=== PATIENT | female | born 1950 | race American Indian/Alaskan Native ===

== ENCOUNTER 2019-09-02 08:08 | Outpatient (CLI) | payer MEDICARE ==
--- NOTE | 2019-09-02 10:32 | Mammography Report ---
LEFT DIGITAL DIAGNOSTIC MAMMOGRAM CLINICAL: For clip placement after vacuum-assisted ultrasound-guided needle biopsy. COMPARISON: [facility] 08/10/2019 mammogram FINDINGS: Some of the previously identified subareolar calcifications have been removed and there is a subareolar upper inner biopsy clip. The clip is at 10-11 o'clock and the bulk of the calcifications were at 12:00. IMPRESSION: Slightly discordant clip deployment. Signer Name: Lauro Pena MD Signed: 09/02/2019 10:28 AM Workstation Name: [id number]
--- NOTE | 2019-09-02 13:46 | Ultrasound Report ---
ULTRASOUND-GUIDED VACUUM-ASSISTED NEEDLE CORE BIOPSY LEFT BREAST WITH CLIP PLACEMENT CLINICAL: Left periaortic subareolar duct ectasia with calcifications in the wall of the duct. Compar wagner images are available from [facility]. FINDINGS: The procedure was explained to the patient and informed consent was obtained. Ultrasound demonstrated the previously identified moderately dilated periareolar duct with calcificat ions.. I marked the breast with a felt tip marker and a timeout was called. The skin was prepped with Chloro -Prep and anesthetized with 1% lidocaine. Vacuum-assisted needle core biopsy was performed through tiny dermatotomy using ultrasound guidance, 2% lidocaine with epinephrine for deep anesthesia and a 13-gauge Mammotome Elite biopsy device. At [facility] 7 cores were obtained and placed in formalin. A clip was deployed at the margin of the lesion. The patient tolerated the procedure well and there were no apparent convocations. Hemostasis was achi eved with minimal effort and a sterile dressing was applied. A post procedure mammogram demonstrated a slightly discordant clip deployment with the clip more medi al than expected. She left the department in good condition and was given instructions for wound care and follow-up. IMPRESSION: Uncomplicated ultrasound guided needle core biopsy with clip placement left breast. Signer Name: Lauro Pena MD Signed: 09/02/2019 1:42 PM Workstation Name: [id number]
== END 2019-09-02 08:09 | disposition home or self-care (01) ==
LOC: SPVWC 08:08
PROVIDERS: ATTEND Surgery
DX: N60.42 Mammary duct ectasia of left breast (principal); R92.8 Other abnormal and inconclusive findings on diagnostic imaging of breast; R92.2 Inconclusive mammogram; R92.1 Mammographic calcification found on diagnostic imaging of breast
CPT/HCPCS: 88305

== ENCOUNTER 2019-09-29 06:17 | Day surgery (SDC) | payer MEDICARE ==
[~2019-09-29 06:17] MED LIST: GABAPENTIN 300 MG CAP PO NR; LACTATED RINGERS 1,000 ML IV SCH; MIDAZOLAM 2 MG/2 ML INJ IV NR; WATER FOR IRRIG STERILE 1,500 ML BOTTLE IR ONE
--- NOTE | 2019-09-29 07:37 | Anesthesia Consultation ---
Anesthesia Consult and Med Hx Date of service: 09/29/19 - Airway Anesthetic Teeth Evaluation: Good, Caps ROM Head & Neck: Adequate Mental/Hyoid Distance: Adequate Mallampati Class: Class II Intubation Access Assessment: Probably Good - Pre-Operative Health Status ASA Pre-Surgery Classification: ASA2 Proposed Anesthetic Plan: General - Cardiovascular System Hx Hypertension: Yes (OVER 20YRS) - Central Nervous System Hx Psychiatric Problems: No - Other Systems Hx Substance Use: No Hx Cancer: No (right breast lesion)
--- NOTE | 2019-09-29 07:37 | Anesthesia Day of Surgery ---
Anesthesia Day of Surgery - Day of Surgery Patient Examined: Yes Patient H&P Reviewed: Yes Patient is NPO: Yes
[2019-09-29] MEDS ORDERED: BUPIVACAINE/PF (0.25%) 2.5 MG/ML 30 ML VIAL INFILTRATI ONE ×2 (07:48→11:04)
[2019-09-29] MEDS ORDERED: LIDOCAINE (1%) 10 MG/1 ML VIAL 20 ML MDV ONE (07:48)
[2019-09-29] MEDS ORDERED: FAMOTIDINE 20 MG/2 ML INJ IV NR (08:00)
[2019-09-29] MEDS ORDERED: LIDOCAINE (1%) 10 MG/1 ML VIAL 20 ML MDV INFILTRATI NR (08:30)
[2019-09-29] MEDS ORDERED: ceFAZolin/STERILE WATER 2 GM/20 ML SYRINGE IV NR (09:00)
[2019-09-29] MEDS ORDERED: HYDROmorphone 1 MG/1 ML INJ ONE (09:23)
[2019-09-29] MEDS ORDERED: LIDOCAINE MPF (2%) 20 MG/1 ML VIAL 5 ML ONE (09:24)
[2019-09-29] MEDS ORDERED: PROPOFOL 200 MG/20 ML VIAL IV ONE (09:24)
--- NOTE | 2019-09-29 10:58 | Mammography Report ---
NEEDLE LOCALIZATION AND HOOKWIRE PLACEMENT LEFT BREAST INDICATION: left needle localization. Status post vacuum-assisted ultrasound biopsy with fragments of papilloma i dentified by pathology. Surgical excision recommended. COMPARISON: 09/02/2019 FINDINGS: A timeout was called and a sal was placed on the left breast. Using mammographic guidance, sterile t echnique and 1% lidocaine for local anesthesia, a 3 cm Farris 3 hookwire was placed from a CC from a kellee approach to localize a clip and calcifications. Satisfactory positioning was confirmed by orthog onal views. The hookwire was deployed and the needle was removed. A sterile dressing was applied at [facility] site. The patient tolerated the procedure well and there were no apparent complications. She was taken to [facility] surgical suite in good condition. IMPRESSION: 1. Uncomplicated hookwire placement left breast.. Signer Name: Lauro Pena MD Signed: 09/29/2019 10:54 AM Workstation Name: [id number]
[2019-09-29] MEDS ORDERED: WATER FOR IRRIG STERILE 1,500 ML BOTTLE IR ONE (11:02)
[2019-09-29] MEDS ORDERED: LIDOCAINE (1%) 10 MG/1 ML VIAL 20 ML MDV INFILTRATI ONE (11:04)
[2019-09-29] MEDS ORDERED: KETOROLAC 30 MG/1 ML INJ ONE (11:22)
[2019-09-29] MEDS ORDERED: ONDANSETRON 4 MG/2 ML INJ ONE (11:22)
--- NOTE | 2019-09-29 11:38 | Operative Report ---
Operative Report Operative Report: Operative Report: September 29, 2019 Preoperative diagnosis: Left breast papilloma and left bloody nipple discharge Postoperative diagnosis: Same Procedure: Left nipple terminal duct excisional biopsy and left breast needle localization excisional biopsy of breast papilloma Surgeon: Alyssa Juan MD Anesthesia: General Findings: Bloody nipple discharge with duct identified using lacrimal probe with dissection taken down to prior biopsied papilloma with excision Complications: None Drains: None EBL: Minimal Disposition: PACU Indications for operative procedure: This is a 68 year-old lady with recent abnormal left mammogram and left breast ultrasound of suspicious calcifications as seen on mammogram. Recent with findings of fragmented papilloma. Patient also with new onset left sponanteous bloody nipple discharge and most probable for recent biopsied papilloma. Recommendations were to proceed with terminal duct excisional biopsy as well as excisional biopsy of biopsied papilloma to rule out malignancy. Papilloma known benign high risk breast cancer lesion. Patient wished to proceed with the above procedure. Procedure detail: The patient was taken to radiology for placement of wire to localize excision of location of biopsy clip. The patient was taken to the operating room. She was laid supine. General anesthesia was administered. Wire was identified. The left breast was prepped and draped in the normal sterile operative fashion. Timeout was performed. Bloody nipple discharge was noted from the nipple, around the 11/12:00 position. Ultrasound was used to identify clip. Lacrimal probe was inserted into the duct of concern. A periareo lar incision was made with 15 blade knife at 12:00 position with dissection taken down to the subcutaneous tissues. First began dissection of the breast tissue from the superior flap of the nipple with dissection taken down 3-4 cm. The duct of concern was appropriately identified and dissected free with the aid of Bovie cautery, duct of concern was identified with the lacrimal probe present. Attention was then taken towards the wire with area of terminal duct noted to terminate at wire of clip placement. A superior breast flap was then raised using the Bovie cautery with removal of wire followed by raising of the inferior flap meeting the terminal duct followed by raising of the lateral and medial flaps and dissection taken down posteriorly. The breast tissue posteriorly was then appropriately removed with the aid of Bovie cautery. The duct of concern was noted to be connecting to the area of excision of the papilloma. Hemostasis was noted. The specimen was appropriately marked and then sent to radiology with both clip and wire present and then sent to pathology; clip was adjacent to tissue removed and sent separately. Ultrasound used to evaluate remaining breast tissue with no suspicious findings. The breast cavity was anesthetized with 1% lidocaine mixed with quarter percent Marcaine. The deep breast tissues were approximated and closed using interrupted 3-0 Vicryl. The subcutaneous tissues were approximated and closed using interrupted 3-0 Vicryl followed by closing of the skin with a running 4-0 Monocryl followed by skin affix. She tolerated surgery very well and was awakened from anesthesia and then transferred to PACU in good condition.
--- NOTE | 2019-09-29 11:41 | Short Stay Summary ---
Short Stay Documentation Date of service: 09/29/19 - History H&P: obtained from office - Allergies and Medications Current Medications: Allergies amoxicillin Allergy (Verified 09/23/19 12:59) Rash Sulfa (Sulfonamide Antibiotics) Allergy (Verified 09/23/19 12:59) Initially a Rash, but then WBC count drops Home Medications Medication Instructions Recorded Confirmed Last Taken Type Olmesartan Medoxomil [Benicar] 20 mg PO DAILY 09/23/19 09/29/19 09/28/19 21:00 History amLODIPine [Norvasc] 5 mg PO DAILY 09/23/19 09/29/19 09/28/19 21:00 History HYDROcodone/APAP 5-325 [[place] 1 each PO Q6HR PRN #12 tablet 09/29/19 Unknown Rx 5/325] Active Medications Famotidine (Pepcid) 20 mg IV PREOP NR Stop: 09/29/19 16:00 Last Admin: 09/29/19 09:15 Dose: 20 mg Documented by: Gabapentin (Gabapentin) 300 mg PO PREOP NR Stop: 09/29/19 18:10 Last Admin: 09/29/19 09:00 Dose: 300 mg Documented by: Lactated Ringer's (Lactated Ringers) 1,000 mls @ 100 mls/hr IV DIRECT AMANDA Last Admin: 09/29/19 09:15 Dose: 100 mls/hr Documented by: Lidocaine (Xylocaine 1% 20 Ml) 20 ml INFILTRATI ONCE NR Stop: 09/29/19 13:00 Midazolam HCl (Versed) 2 mg IV PREOP NR Stop: 09/29/19 23:00 Last Admin: 09/29/19 09:40 Dose: 2 mg Documented by: - Brief post op/procedure progress note Date of procedure: 09/29/19 Pre-op diagnosis: Left bloody nipple discharge and left breast papilloma Post-op diagnosis: same Procedure: Left nipple terminal duct excisional biospy and left papilloma excisional biopsy Anesthesia: GETA Findings: Left breast clip and wire present Surgeon: JOCELYN BLACKMON Estimated blood loss: minimal Pathology: list (left breast papilloma and terminal duct) Specimen disposition: to lab Condition: stable - Disposition Condition at discharge: Good Disposition: DC- TO HOME OR SELFCARE Short Stay Discharge Plan Activity: other (no heavy lifting) Diet: regular Wound: keep clean and dry (may shower in 24 hours; no baths; wear breast binder) Follow up with: SANDRINE GASTON MD [Primary Care Provider] - 7 Days JOCELYN BLACKMON MD [Staff Physician] - 7 Days Prescriptions: HYDROcodone/APAP 5-325 [[place] 5/325] 1 each PO Q6HR PRN #12 tablet PRN Reason: Pain
[2019-09-29 12:17] VITALS: BP 125/52
--- NOTE | 2019-09-29 12:54 | Mammography Report ---
SPECIMEN RADIOGRAPH LEFT BREAST INDICATION: specimen. Post excisional biopsy. COMPARISON: 09/02/2019 FINDINGS: An initial image demonstrates the targeted calcifications and a hookwire but no biopsy clip. A second specimen radiograph demonstrates the HIDA sal biopsy clip. It apparently was dislodged from the spe cimen at the time of the excision. IMPRESSION: 1. Excision of the targeted calcifications and localizer clip. Signer Name: Lauro Pena MD Signed: 09/29/2019 12:50 PM Workstation Name: [id number]
--- NOTE | 2019-09-29 16:47 | Post Anesthesia Evaluation ---
- Post Anesthesia Evaluation Patient Participated: Yes Airway Patent: Yes Stable Respiratory Function: Yes Nausea/Vomiting: No Temp > 96.8F: Yes Pain Manageable: Yes Adequeate Hydration: Yes Anesthesia Complications: No
== END 2019-09-29 12:55 | disposition home or self-care (01) ==
LOC: OR 06:17
PROVIDERS: ATTEND Surgery
DX: D24.2 Benign neoplasm of left breast (principal); I10 Essential (primary) hypertension; Z88.1 Allergy status to other antibiotic agents; Z88.2 Allergy status to sulfonamides; Z98.890 Other specified postprocedural states
CPT/HCPCS: 19125; 19281; 76098; 88307; J1170; J1885; J2250; J2405; J2704; J7120

== ENCOUNTER 2020-07-27 08:12 | Outpatient (CLI) | payer MEDICARE ==
--- NOTE | 2020-07-27 08:55 | Mammography Report ---
DIGITAL SCREENING MAMMOGRAM WITH CAD, 07/27/2020 INDICATION: Routine screening mammography. TECHNIQUE: Digital bilateral 2D mammography was obtained in the craniocaudal and mediolateral obliq ue projections. This examination was interpreted with the benefit of Computer-Aided Detection analysi s. COMPARISON: 07/22/2019, 06/01/2018 FINDINGS: Breast Density: There are scattered areas of fibroglandular density. There is no evidence of dominant mass, suspicious calcifications or architectural distortion in eithe r breast. Postsurgical changes are noted in the left breast. IMPRESSION: Follow up recommendation: Routine yearly BI-RADS Category 2: Benign. A "normal" or negative report should not discourage follow up or biopsy of a clinically significant f inding. A written summary of these findings will be mailed to the patient. The patient will be entered into a mammography reporting system which will generate a reminder letter for the patient's next appointmen t at the appropriate interval. The [employer] recommends yearly mammograms starting at age 40 and continuing as l mayda as a woman is in good health. Breast MRI is recommended for women with an approximate 20-25% or greater lifetime risk of breast cancer, including women with a strong family history of breast or ova erin cancer or who have been treated for Hodgkin's disease. Signer Name: Krista Mckay MD Signed: 07/27/2020 8:51 AM Workstation Name: [id number]
== END 2020-07-27 08:13 | disposition home or self-care (01) ==
LOC: SPVWC 08:12
PROVIDERS: ATTEND Surgery
DX: Z12.31 Encounter for screening mammogram for malignant neoplasm of breast (principal)
CPT/HCPCS: 77067

== ENCOUNTER 2021-07-30 08:03 | Outpatient (CLI) | payer MEDICARE ==
--- NOTE | 2021-07-30 09:49 | Mammography Report ---
DIGITAL SCREENING MAMMOGRAM WITH CAD, 07/30/2021 CLINICAL INFORMATION / INDICATION: Routine screening mammography. Z12.31 TECHNIQUE: Digital bilateral 2D mammography was obtained in the craniocaudal and mediolateral obliqu e projections. This examination was interpreted with the benefit of Computer-Aided Detection analysis . COMPARISON: 07/27/2020, 07/22/2019, 06/01/2018 FINDINGS: Breast Density: There are scattered areas of fibroglandular density. No dominant mass, suspicious calcifications, or architectural distortion in either breast. Postoperative changes are noted to the left retroareolar breast. IMPRESSION: No mammographic evidence of malignancy. Follow up recommendation: Routine yearly BI-RADS Category 2: Benign. A "normal" or negative report should not discourage follow up or biopsy of a clinically significant f inding. A written summary of these findings will be mailed to the patient. The patient will be entered into a mammography reporting system which will generate a reminder letter for the patient's next appointmen t at the appropriate interval. The [employer] recommends yearly mammograms starting at age 40 and continuing as l mayda as a woman is in good health. Breast MRI is recommended for women with an approximate 20-25% or greater lifetime risk of breast cancer, including women with a strong family history of breast or ova erin cancer or who have been treated for Hodgkin's disease. Signer Name: Primitivo Kumar DO Signed: 07/30/2021 9:45 AM Workstation Name: [id number]
== END 2021-07-30 08:04 | disposition home or self-care (01) ==
LOC: MAMMO 08:03
PROVIDERS: ATTEND Internal Medicine
DX: Z12.31 Encounter for screening mammogram for malignant neoplasm of breast (principal)
CPT/HCPCS: 77067